=== PATIENT | female | born 1990 | race Caucasian/White ===

== ENCOUNTER 2022-12-10 14:41 | Emergency (ER) | payer OTHER, MEDICAID ==
[2022-12-10 22:52] LABS: HEMATOCRIT 29.8 % (36.0-46.0)
== END 2022-12-10 23:14 | disposition home or self-care (01) ==
LOC: MW.ED 14:41
DX: D62 Acute posthemorrhagic anemia (principal); I10 Essential (primary) hypertension; Z79.899 Other long term (current) drug therapy; Z98.84 Bariatric surgery status
CPT/HCPCS: 36415; 36430; 85014; 85018; 86850; 86900; 86901; 86920; 99284; P9016

== ENCOUNTER 2024-05-27 13:14 | Emergency (ER) | payer MEDICAID ==
[2024-05-27] MEDS: Ondansetron 4 MG/2 ML SDV IVPUSH STA (13:36)
[2024-05-27] MEDS: Morphine 4 MG/ML Syringe IVPUSH STA ×3 (13:36→17:00)
[2024-05-27 13:46] LABS: APPEARANCE,URINE CLEAR; BILIRUBIN,URINE NEGATIVE (NEGATIVE); COLOR,URINE YELLOW; GLUCOSE,URINE NEGATIVE (NEGATIVE); KETONES,URINE NEGATIVE (NEGATIVE); LEUKOCYTE ESTERASE,URINE NEGATIVE (NEGATIVE); NITRITE,URINE NEGATIVE (NEGATIVE); OCCULT BLOOD,URINE MODERATE (NEGATIVE); PH,URINE 6.5 (5.0-8.0); PROTEIN,URINE NEGATIVE (NEGATIVE); UROBILINOGEN,URINE 0.2 EU/dL (<2.0)
[2024-05-27 13:46] LABS: BASOPHILS ABSOLUTE AUTO 0.03 K/uL (0.00-0.20); BASOPHILS PERCENT AUTO 0.3 % (0.0-1.0); EOSINOPHILS ABSOLUTE AUTO 0.09 K/uL (0.00-0.45); HEMOGLOBIN 14.5 g/dL (12.0-16.0); IMMATURE GRAN ABSOLUTE AUTO 0.03 K/uL (0.00-0.05); IMMATURE GRAN PERCENT AUTO 0.3 % (0.0-0.4); LYMPHOCYTES ABSOLUTE AUTO 2.18 K/uL (1.00-4.80); LYMPHOCYTES PERCENT AUTO 24.9 % (24.0-44.0); MEAN CORPUSCULAR HEMOGLOBIN 31.9 pg (28.0-32.0); MEAN CORPUSCULAR HGB CONC 33.7 g/dL (32.0-36.0); MEAN CORPUSCULAR VOLUME 94.7 fL (83.0-99.0); MEAN PLATELET VOLUME 10.7 fL (9.4-12.3); MONOCYTES ABSOLUTE AUTO 0.51 K/uL (0.00-0.80); MONOCYTES PERCENT AUTO 5.8 % (0.0-8.0); NEUTROPHILS ABSOLUTE AUTO 5.93 K/uL (1.80-7.70); NEUTROPHILS PERCENT AUTO 67.7 % (41.0-71.0); PLATELET COUNT,PLT 254 K/uL (150-400); RED BLOOD CELL COUNT 4.54 M/uL (4.10-5.30); WHITE BLOOD CELL COUNT,WBC 8.77 K/uL (3.9-11.3)
[2024-05-27 14:01] LABS: A/G RATIO 1.1 (0.9-1.6); ALBUMIN 3.5 g/dL (3.4-5.0); BILIRUBIN TOTAL 0.2 mg/dL (0.2-1.0); CALCIUM 8.7 mg/dL (8.5-10.1); CARBON DIOXIDE,CO2 30.3 mmol/L (21.0-32.0); CREATININE 0.7 mg/dL (0.6-1.0); EST CRCL DRUG DOSING (CG) 100.94 mL/min; POTASSIUM,K 4.1 mmol/L (3.5-5.1); PROTEIN TOTAL,TP 6.8 g/dL (6.4-8.2)
[2024-05-27 14:12] LABS: BACTERIA,URINE FEW (NEGATIVE); EPITHELIAL CELLS,URINE FEW (NONE-FEW); MUCUS,URINE LIGHT (NONE-MOD); RBC,URINE 0-2 (0-2/HPF); WBC,URINE 0-1 (0-5/HPF)
[2024-05-27] MEDS: Iopamidol 755 MG/ML 500 ML Multipack Bottle IVPUSH STA (14:32)
[2024-05-27] MEDS: traMADol 50 MG Tab PO STA (17:35)
== END 2024-05-27 17:37 | disposition home or self-care (01) ==
LOC: MW.ED 13:14
DX: K82.9 Disease of gallbladder, unspecified (principal); I10 Essential (primary) hypertension; Z98.84 Bariatric surgery status; Z79.899 Other long term (current) drug therapy; Z75.8 Other problems related to medical facilities and other health care
CPT/HCPCS: 36415; 74177; 76705; 80053; 81001; 83690; 84703; 85025; 96374; 96375; 96376; 99284; A9270; J2270; J2405; Q9967

== ENCOUNTER 2024-06-01 11:45 | Day surgery (SDC) | payer MEDICAID ==
[2024-06-01] MEDS: Lactated Ringers 1,000 ML IV SCH (12:52)
[2024-06-01] MEDS ORDERED: Glycopyrrolate 0.2 MG/ML SDV ONE ×2 (13:13→13:23)
[2024-06-01] MEDS ORDERED: Lidocaine 2% 5 ML SDV ONE (13:13)
[2024-06-01] MEDS ORDERED: Midazolam 1 MG/ML 2 ML SDV ONE (13:22)
[2024-06-01] MEDS ORDERED: Propofol 200 MG/20 ML SDV ONE (13:22)
[2024-06-01] MEDS ORDERED: fentaNYL 100 MCG/2 ML SDV ONE (13:23)
[2024-06-01] MEDS ORDERED: Ondansetron 4 MG/2 ML SDV ONE (13:23)
== END 2024-06-01 14:05 | disposition home or self-care (01) ==
LOC: MW.SDS 11:45
PROVIDERS: ATTEND Surgery
DX: R10.9 Unspecified abdominal pain (principal); R11.2 Nausea with vomiting, unspecified; I10 Essential (primary) hypertension; F32.A Depression, unspecified; Z98.84 Bariatric surgery status; F41.1 Generalized anxiety disorder; F17.200 Nicotine dependence, unspecified, uncomplicated
CPT/HCPCS: 43239; 81025; J1596; J2250; J2405; J2704; J3010; J7120; 00731; J3490